=== PATIENT | female | born 1970 | race African-American/Black ===

== ENCOUNTER 2017-11-01 12:55 | Outpatient (CLI) | payer OTHER ==
[2015-08-03 01:12] VITALS: BP 126/89
--- NOTE | 2017-11-01 17:43 | Diagnostic Imaging Report ---
NATHAN ALLEN [facility] [id number] [facility].[address] [id number] Report Submission Date: Nov 01, 2017 1:24:56 PM [employer]IST Patient Study Name: BENSON HOLT Date: Nov 01, 2017 1:03:05 PM [employer]IST Modality Type: DX Gender: F Description: CHEST : 70 Institution: [facility] Physician: NATHAN ALLEN Examination: PA and lateral chest. History: CXR, COUGH WITH SOA X3 WEEKS, NON SMOKER (Hx) Comparison exam: None provided. Findings: PA lateral chest demonstrate a normal cardiac and mediastinal silhouette. No focal infiltrate. No blunting of the costophrenic margins. Osseous structures are appropriate for age. Impression: No acute pulmonary process. Electronically signed on Nov 01, 2017 1:24:56 PM [employer]IST by: Yadiel VILLANUEVA
== END 2017-11-01 12:56 ==
LOC: RAD 12:55
PROVIDERS: ATTEND Nurse Practitioner Family
DX: R06.02 Shortness of breath (principal)
CPT/HCPCS: 71046